=== PATIENT | female | born 1980 | race Asian ===

== ENCOUNTER 2016-10-05 14:01 | Inpatient (IN) | payer SELFPAY ==
[~2016-10-05] VITALS: Ht 158 cm; Wt 62.0 kg
[2016-10-05] MEDS ORDERED: LR 1,000 ML IV ONE (14:18)
[2016-10-05] MEDS ORDERED: CEFAZOLIN 2 GM IVPB PREMIX 50 ML IV ONE (14:30)
[2016-10-05 15:07] LABS: MEAN CORPUSCULAR HEMOGLOBIN 30 pg (27-31)
[2016-10-05 15:08] LABS: BILIRUBIN,URINE NEGATIVE (NEGATIVE); BLOOD, URINE 1+ (NEGATIVE); CLARITY/URINE SL CLOUDY (CLEAR); COLOR,URINE YELLOW (YELLOW); GLUCOSE,URINE NEGATIVE (NEGATIVE); KETONES,URINE NEGATIVE (NEGATIVE); LEUKOCYTE ESTERASE ,URINE TRACE (NEGATIVE); NITRITE, URINE NEGATIVE (NEGATIVE); PROTEIN URINE NEGATIVE (NEGATIVE); UROBILINOGEN,URINE 0.2 (0.2-1.0)
[2016-10-05 15:21] LABS: BACTERIA,URINE FEW /HPF (None Seen); MUCUS,URINE 1+ /LPF (None Seen)
[2016-10-05 15:43] LABS: BASOPHILS % (AUTO) 0.4 % (0.0-2.0); EOSINOPHILS % (AUTO) 0.2 % (0.0-4.0); LYMPHOCYTES % (AUTO) 20.6 % (20.5-51.5); MONOCYTES % (AUTO) 5.5 % (1.7-9.3); NEUTROPHILS % (AUTO) 73.3 % (40.0-70.0)
[2016-10-05 15:44] LABS: HEMATOCRIT 42.8 % (36-48); HEMOGLOBIN 13.8 g/dL (12.0-16.0); LYMPHOCYTES # (AUTO) 1.9 K/uL (1.0-5.5); MEAN CORPUSCULAR HGB CONC 32 % (32-36); MEAN CORPUSCULAR VOLUME 93 fL (79.0-98.0); MONOCYTES # (AUTO) 0.5 K/uL (0.0-1.0); NEUTROPHILS # (AUTO) 6.7 K/uL (1.8-7.7); PLATELET COUNT (AUTO) 566 K/uL (130-430); RED CELL DISTRIBUTION WIDTH 13.7 % (9.0-15.0); WHITE BLOOD COUNT (AUTO) 9.1 K/uL (4.8-10.8)
[2016-10-05] MEDS ORDERED: LR 1,000 ML IV.SOLN IV ONE (16:31)
[2016-10-05] MEDS ORDERED: DEXAMETHASONE SOD PHOSPHATE 4 MG/ML VIAL IVP ONE (16:31)
[2016-10-05] MEDS ORDERED: NS IRRIG SOLN 1000 ML IR ONE (16:31)
[2016-10-05] MEDS ORDERED: KETOROLAC TROMETHAMINE 30 MG VIAL IVP ONE (16:31)
[2016-10-05] MEDS ORDERED: METOCLOPRAMIDE HCL 10 MG/2 ML VIAL IVP ONE (16:31)
[2016-10-05] MEDS ORDERED: BUPIVACAINE /PF 0.75% 10 ML VIAL INJ ONE (16:31)
[2016-10-05] MEDS ORDERED: MORPHINE SULFATE 10MG/10ML PF AMP EP ONE (16:31)
[2016-10-05] MEDS ORDERED: fentaNYL CITRATE 250 MCG/5 ML AMP IV ONE (16:31)
[2016-10-05] MEDS ORDERED: OXYTOCIN/NORMAL SALINE 1,000 ML IV ONE (16:53)
[2016-10-05] MEDS ORDERED: LR 1,000 ML IV SCH (16:53)
[2016-10-05] MEDS ORDERED: RHO(D) IMMUNE GLOBULIN/MALTOSE 1500 UNITS/1.3 ML (WINHRO) IM PRN (17:00)
[2016-10-05] MEDS ORDERED: MEASLES,MUMPS&RUBELLA VACC/PF 12500 UNIT/0.5 ML VIAL SUBQ PRN (17:00)
[2016-10-05] MEDS ORDERED: BISACODYL 10 MG/SUPPOSITORY RC PRN (17:00)
[2016-10-05] MEDS ORDERED: LANOLIN 7 GM OINT. TP PRN (17:00)
[2016-10-05] MEDS ORDERED: SENNOSIDES/DOCUSATE SODIUM 1 TAB TABLET(SENOKOT-S) PO PRN (17:00)
[2016-10-05] MEDS ORDERED: ACETAMINOPHEN 325 MG TABLET PO PRN (17:00)
[2016-10-05] MEDS ORDERED: HYDROcodone/ACETAMIN 5-325 MG TAB (NORCO/ VICODIN) PO PRN (17:00)
[2016-10-05] MEDS ORDERED: TEMAZEPAM 15 MG CAPSULE PO PRN (17:00)
[2016-10-05] MEDS ORDERED: ANUSOL 1 EA SUPP.RECT (PREPARATION H) RC PRN (17:00)
[2016-10-05 17:39] VITALS: BP 101/62
[2016-10-05] MEDS: KETOROLAC TROMETHAMINE 30 MG VIAL IVP PRN (22:59)
[2016-10-06] MEDS: KETOROLAC TROMETHAMINE 30 MG VIAL IVP PRN ×2 (00:55→04:46)
[2016-10-06 06:33] LABS: BASOPHILS % (AUTO) 0.2 % (0.0-2.0); EOSINOPHILS % (AUTO) 0.1 % (0.0-4.0); HEMATOCRIT 34.2 % (36-48); HEMOGLOBIN 11.4 g/dL (12.0-16.0); LYMPHOCYTES # (AUTO) 1.8 K/uL (1.0-5.5); LYMPHOCYTES % (AUTO) 15.2 % (20.5-51.5); MEAN CORPUSCULAR HEMOGLOBIN 31 pg (27-31); MEAN CORPUSCULAR HGB CONC 33 % (32-36); MEAN CORPUSCULAR VOLUME 94 fL (79.0-98.0); MONOCYTES # (AUTO) 0.7 K/uL (0.0-1.0); MONOCYTES % (AUTO) 6.2 % (1.7-9.3); NEUTROPHILS # (AUTO) 9.3 K/uL (1.8-7.7); NEUTROPHILS % (AUTO) 78.3 % (40.0-70.0); PLATELET COUNT (AUTO) 452 K/uL (130-430); RED BLOOD CELL COUNT(AUTO) 3.64 MIL/uL (4.2-6.2); RED CELL DISTRIBUTION WIDTH 13.3 % (9.0-15.0); WHITE BLOOD COUNT (AUTO) 11.8 K/uL (4.8-10.8)
[2016-10-06] MEDS: IBUPROFEN 600 MG TABLET PO SCH ×2 (12:51→18:22)
[2016-10-07] MEDS: IBUPROFEN 600 MG TABLET PO SCH ×4 (00:11→18:57)
[2016-10-07] MEDS: SIMETHICONE 80 MG TAB.CHEW PO PRN ×2 (11:56→18:57)
[2016-10-07] MEDS: HYDROcodone/ACETAMIN 5-325 MG TAB (NORCO/ VICODIN) PO PRN (14:18)
[2016-10-07] MEDS: DOCUSATE SODIUM 100 MG CAPSULE PO PRN (18:57)
[2016-10-08] MEDS: IBUPROFEN 600 MG TABLET PO SCH ×3 (00:12→12:14)
[2016-10-08] MEDS: DOCUSATE SODIUM 100 MG CAPSULE PO PRN (09:49)
[2016-10-08] MEDS: HYDROcodone/ACETAMIN 5-325 MG TAB (NORCO/ VICODIN) PO PRN (15:19)
[2016-10-08] MEDS ORDERED: DIPH-TET-PERTUS Vaccine 0.5 ML VIAL/Tdap (ADACEL) I.M. PRN (16:15)
== END 2016-10-08 17:00 | disposition home or self-care (01) | DRG 766 ==
LOC: SPU 14:01
PROVIDERS: ADMIT Obstetrics & Gynecology; ATTEND Obstetrics & Gynecology
PROC: 3E0234Z Introduction of Serum, Toxoid and Vaccine into Muscle, Percutaneous Approach (ICD-10-PCS; 2016-10-05)
PROC: 10D00Z1 Extraction of Products of Conception, Low, Open Approach (ICD-10-PCS; principal; 2016-10-05 16:00)
DX: O36.63X0 Maternal care for excessive fetal growth, third trimester, not applicable or unspecified (principal); O99.89 Other specified diseases and conditions complicating pregnancy, childbirth and the puerperium; M35.9 Systemic involvement of connective tissue, unspecified; D47.3 Essential (hemorrhagic) thrombocythemia; Z3A.40 40 weeks gestation of pregnancy; Z37.0 Single live birth; O09.513 Supervision of elderly primigravida, third trimester; Z79.82 Long term (current) use of aspirin; Z79.899 Other long term (current) drug therapy; Z79.01 Long term (current) use of anticoagulants; Z23 Encounter for immunization
CPT/HCPCS: 36415; 81000-TC; 81002-TC; 85025; 86592; 86886; 86900; 86901; 90715; 94760; A4618; J0690; J1100; J1885; J2274; J2765; J3010; J3490; J7120